=== PATIENT | male | born 1990 | race Caucasian/White ===

== ENCOUNTER → 2020-05-19 | Outpatient (CLI) | payer OTHER ==
[~2020-05-19] MED LIST: ACETAMINOPHEN-1 EAC1 PO; ADVIL PO; ALEVE220 MG PO; CELEBREX; DEPAKOTE500 MG PO; FLEXERIL PO; FLOMAX PO; HYDROCODON-ACE1 EAC7 PO; HYDROCODONE-AP1 EAC6 PO; IBUPROFEN 800800 M1 PO; NAPROSYN500 MG PO; NORCO 5-325 TA1 EACH PO; PERCOCET 5-3251 EACH PO; RISPERDAL2 MG PO; TOBREX5 ML OP; TRAMADOL 50 MG50 MG PO; TRAZODONE HCL50 MG PO; ZOFRAN ODT4 MG PO
== END ==
LOC: M.LAB 16:53
PROVIDERS: ATTEND Surgery
DX: Z01.812 Encounter for preprocedural laboratory examination (principal); K42.9 Umbilical hernia without obstruction or gangrene; Z20.828 Contact with and (suspected) exposure to other viral communicable diseases

== ENCOUNTER → 2020-05-22 | Day surgery (SDC) | payer OTHER ==
[~2020-05-22] MED LIST changes: +NORCO 5-325 TA1 EAC2 PO
[2020-05-22 06:37] LABS: HEMATOCRIT 42.3 % (42.0-52.0); HEMOGLOBIN 15.1 gm/dL (14.0-18.0); MCH 32.7 pg (26.0-34.0); MCHC 35.8 g/dL (28.0-37.0); MCV 91.4 fL (80.0-100.0); MPV 8.3 fl. (7.2-11.1); RBC 4.63 mil/uL (4.50-6.00); RDW-CV 13.1 % (10.5-14.5); WBC 5.9 thou/uL (4.0-11.0)
[2020-05-22 06:43] LABS: CALCIUM 8.2 mg/dL (8.5-10.1); CREATININE 1.2 mg/dL (0.6-1.3); POTASSIUM 4.2 mmol/L (3.5-5.1)
--- NOTE | 2020-05-23 09:50 | OP ---
[facility] [address] [place] [address] OPERATIVE REPORT Name: CHERRI SPARROW Room: [facility]#: [id number] Admission: 05/22/20 Attend Phys: Judd Marquis Discharge: Date of : 86 Report #: [id number] THIS REPORT FOR: //name// cc: DAGO GAY NP, KATHERINE J. NP ~ CC: Judd GAY DATE OF SERVICE: 05/22/2020 PREOPERATIVE DIAGNOSIS: Incarcerated umbilical hernia. POSTOPERATIVE DIAGNOSIS: Incarcerated umbilical hernia. OPERATION: Laparoscopic repair of incarcerated umbilical hernia with mesh. SURGEON: Judd Marquis MD. ANESTHESIA: General. ESTIMATED BLOOD LOSS: Minimal. SPECIMEN: None. DESCRIPTION OF PROCEDURE: After informed consent was obtained, the patient was brought to the operating room and placed supine. SCDs were placed and working, preoperative antibiotics were administered, general anesthesia was induced. The abdomen was prepped and draped in the usual sterile fashion. A 5 mm incision was made in the left upper quadrant. A 5 mm trocar was placed under direct vision. Pneumoperitoneum was established. A left-sided 8 mm trocar and a right-sided 5 mm trocar was placed. He had incarcerated preperitoneal fat and an umbilical hernia defect. This was all carefully reduced. Defect measured approximately 1 cm. I then inserted a Bard Ventralight mesh, which had been trimmed to about 9-10 cm in diameter. It was tacked up to the abdominal wall, covering the defect widely. A transfascial 2-0 Ethibond suture was placed using a PMI suture passer in the midline in the superior aspect of the mesh. The ports were removed under direct vision. The skin was closed with 4-0 Monocryl. Incisions were sealed with Dermabond. COMPLICATIONS: [place] [address] OPERATIVE REPORT Name: SPARROWCHERRI Howell Room: [facility]#: [id number] Admission: 05/22/20 Attend Phys: Judd Marquis Discharge: Date of : 86 Report #: [id number] DISPOSITION: The patient was taken to recovery in satisfactory condition. <ELECTRONICALLY SIGNED> By: Judd Marquis MD 05/23/20 0950 [id number] Marquis MD /nt
== END | disposition home or self-care (01) ==
LOC: M.SUR
PROVIDERS: Family Medicine; ATTEND Surgery
DX: K42.0 Umbilical hernia with obstruction, without gangrene (principal); Z98.890 Other specified postprocedural states; Z79.899 Other long term (current) drug therapy